=== PATIENT | female | born 1990 | race Two or more races ===

== ENCOUNTER 2017-11-02 08:58 | Emergency (ER) | payer OTHER ==
[2017-11-02 09:04] VITALS: BP 124/75; PULSE 76; TEMP 97.9; BMI 26.9
--- NOTE | 2017-11-02 10:31 | PDOC ---
History of Present Illness - General Chief Complaint: Abscess Boil Stated Complaint: CYST Time Seen by Provider: 11/02/17 09:43 History Source: Patient Exam Limitations: No Limitations - History of Present Illness Initial Comments: 11/02/17 10:23 27 yr female with lump to left inner thigh noticed yesterday after shaving. no discharge no fever. no past medical history. Severity: Yes: mild Past History - Past Medical History Allergies/Adverse Reactions: Allergies Allergy/AdvReac Type Severity Reaction Status Date / Time No Known Allergies Allergy Verified 11/02/17 09:01 Home Medications: Ambulatory Orders NK [No Known Home Medication] 11/02/17 COPD: No - Immunization History Immunization Up to Date: Yes - Suicide/Smoking/Psychosocial Hx Smoking History: Never smoked Information on smoking cessation initiated: No Hx Alcohol Use: Yes (occasion) Drug/Substance Use Hx: No Substance Use Type: None Review of Systems - Review of Systems Able to Perform ROS?: Yes Is the patient limited Bulgarian proficient: No Constitutional: No: Symptoms Reported HEENTM: No: Symptoms Reported Respiratory: No: Symptoms reported Cardiac (ROS): No: Symptoms Reported ABD/GI: No: Symptoms Reported : No: Symptoms Reported Integumentary: Yes: Symptoms Reported *Physical Exam - Vital Signs Last Vital Signs Temp Pulse Resp BP Pulse Ox 97.9 F 76 18 124/75 100 11/02/17 09:01 11/02/17 09:01 11/02/17 09:01 11/02/17 09:01 11/02/17 09:01 - Physical Exam General Appearance: Yes: Nourished, Appropriately Dressed HEENT: positive: EOMI, GARTH, Normal ENT Inspection, TMs Normal, Pharynx Normal Neck: positive: Supple Respiratory/Chest: positive: Lungs Clear, Normal Breath Sounds Cardiovascular: positive: Regular Rhythm, Regular Rate Extremity: positive: Normal Capillary Refill, Other (left inner thigh with 1cm fluctuant abscess/lump no cellulitus) Procedures - Incision and Drainage I&D Site: Left: Other (inner thigh ) Betadine cleansed: Yes Blade Size: 10 Attempts: 1 Dressing: Yes Progress: 11/02/17 15:46 serous fluid returned, deflated the abscess dressed with dry sterile gauze pt toelrated well Medical Decision Making - Medical Decision Making 11/02/17 15:46 cc: small ingorwn hair, possibly early abscess to the left inner thigh will drain for comfort, as the area is rubbing on the pt's clothing pt agrees with plan and tolerated well pt understands to follow with dermatoligst if this re-appears or continues pt to apply warm moist compresses to the area return to ER for any worsening or concerning symptoms *DC/Admit/Observation/Transfer Diagnosis at time of Disposition: Abscess - Discharge Dispostion Disposition: HOME Condition at time of disposition: Good - Referrals - Patient Instructions Additional Instructions: warm compresses to the area of swelling every 2hrs for 20 minutes take motrin every 6hrs for pain return if any worsening symptoms - Post Discharge Activity
== END 2017-11-02 10:55 | disposition home or self-care (01) ==
LOC: JERFT 08:58
PROC: 0J9M0ZZ Drainage of Left Upper Leg Subcutaneous Tissue and Fascia, Open Approach (ICD-10-PCS; principal; 2017-11-02)
DX: L02.416 Cutaneous abscess of left lower limb (principal)
CPT/HCPCS: 10060; 99281-25